=== PATIENT | female | born 1975 | race Caucasian/White ===

== ENCOUNTER 2016-03-10 06:31 | Day surgery (SDC) | payer BC ==
[~2016-03-10] VITALS: Ht 175.3 cm; Wt 86.1 kg
[~2016-03-10 06:31] MED LIST: DESYREL100 MG PO; TRIVORA-281 EACH PO
[2016-03-10 06:58] VITALS: BP 138/78
[2016-03-10 09:32] VITALS: BP 120/76
[2016-03-10 10:35] VITALS: BP 114/774
== END 2016-03-10 10:55 | disposition home or self-care (01) ==
LOC: SDC 06:31
PROC: 0UDB8ZX Extraction of Endometrium, Via Natural or Artificial Opening Endoscopic, Diagnostic (ICD-10-PCS; principal; 2016-03-10)
DX: N85.01 Benign endometrial hyperplasia (principal); N92.0 Excessive and frequent menstruation with regular cycle
CPT/HCPCS: 88305; J1100; J1885; J2250; J2405; J3010

== ENCOUNTER 2017-01-25 05:42 | Day surgery (SDC) | payer BC ==
[~2017-01-25] VITALS: Ht 170.2 cm; Wt 72.0 kg
[~2017-01-25 05:42] MED LIST changes: +TRAZODONE HCL50 MG PO
[2017-01-25 06:00] VITALS: BP 112/73
[2017-01-25 09:35] VITALS: BP 100/65
[2017-01-25 10:33] VITALS: BP 118/67
== END 2017-01-25 11:10 | disposition home or self-care (01) ==
LOC: SDC 05:42
PROC: 0U5B8ZZ Destruction of Endometrium, Via Natural or Artificial Opening Endoscopic (ICD-10-PCS; principal; 2017-01-25)
DX: N92.0 Excessive and frequent menstruation with regular cycle (principal); Z87.891 Personal history of nicotine dependence
CPT/HCPCS: J0690; J1100; J1170; J1885; J2250; J2405; J3010; J7120